=== PATIENT | male | born 1990 | race American Indian/Alaskan Native ===

== ENCOUNTER 2017-02-18 17:44 | Emergency (ER) | payer SELFPAY ==
[2017-02-18] MEDS ORDERED: TYLENOL PO ONE (17:58)
[2017-02-18] MEDS ORDERED: TYLENOL ONE (18:03)
[2017-02-18 18:33] LABS: Anion Gap 17 mmol/L; BUN/Creatinine Ratio 9; Blood Urea Nitrogen 6 mg/dL (9-20); Calcium 9.4 mg/dL (8.4-10.2); Carbon Dioxide 28 mmol/L (22-30); Chloride 99.5 mmol/L (98-107); Glucose 108 mg/dL (75-100); Sodium 140 mmol/L (137-145)
[2017-02-18 18:40] LABS: Basophils % (Auto) 0.7 % (0.0-1.8); Hemoglobin 14.7 gm/dl (11.8-15.2); Mean Corpuscular HGB Conc 33 % (32-34); Mean Corpuscular Hemoglobin 30 pg (28-32); Mean Corpuscular Volume 90 fl (84-94); Platelet Count 359 K/mm3 (140-440); Red Cell Distribution Width 12.5 % (13.2-15.2); White Blood Count 8.6 K/mm3 (4.5-11.0)
[2017-02-18] MEDS ORDERED: TRIMOX PO ONE (23:53)
--- NOTE | 2017-02-18 23:57 | Emergency Department Report ---
HPI - General Chief Complaint: Dental/Oral Time Seen by Provider: 02/18/17 23:46 - HPI HPI: 26-year-old male presents to the emergency department with a complaint of a 2 day history of worsening left ear pain. Yesterday he just felt like it was clogged and/or swollen but today he had extreme pain. He says that there has been some greenish discharge coming from the ear. He denies any fever. He denies any past medical history. He has not taken anything for symptoms prior to presentation. No recent travel or sick contacts at home. He does not have a primary care physician. ED Past Medical Hx - Past Medical History Previous Medical History?: No - Surgical History Past Surgical History?: No - Social History Smoking Status: Current Every Day Smoker Substance Use Type: None - Medications Home Medications: Home Medications Medication Instructions Recorded Confirmed Last Taken Type Amoxicillin [Trimox CAP] 500 mg PO Q8H #30 capsule 02/19/17 Unknown Rx Ciprofloxacin/Hydrocortisone 4 drop BID #1 bottle 02/19/17 Unknown Rx [Cipro Hc Otic Suspension] ED Review of Systems ROS: Stated complaint: LEFT EAR LEAKING,PAIN Other details as noted in HPI Comment: All other systems reviewed and negative Constitutional: denies: chills, fever Eyes: denies: eye pain, eye discharge, vision change ENT: ear pain. denies: throat pain Respiratory: denies: cough, shortness of breath, wheezing Cardiovascular: denies: chest pain, palpitations Gastrointestinal: denies: abdominal pain, nausea, diarrhea Genitourinary: denies: urgency, dysuria Musculoskeletal: denies: back pain, joint swelling, arthralgia Skin: denies: rash, lesions Neurological: denies: headache, weakness, paresthesias Physical Exam - Physical Exam Vital Signs: Vital Signs 02/18/17 17:55 Temperature 98.9 F Pulse Rate 86 Respiratory 18 Rate Blood Pressure 171/115 O2 Sat by Pulse 97 Oximetry Physical Exam: GENERAL: The patient is well-developed well-nourished. HENT: Normocephalic. Atraumatic. Patient has moist mucous membranes. Oropharynx is clear. Normal-appearing right external ear canal and tympanic membrane. The left external ear canal is erythematous, swollen but patent with some white discharge seen. The left tympanic membrane is dull, slightly opaque without any light reflex concerning for an otitis media. EYES: Extraocular motions are intact. Pupils equal reactive to light bilaterally. NECK: Supple. Trachea is midline. CHEST/LUNGS: Clear to auscultation. There is no respiratory distress noted. HEART/CARDIOVASCULAR: Regular. There is no tachycardia. There is no gallop rub or murmur. ABDOMEN: Abdomen is soft, nontender. Patient has normal bowel sounds. There is no abdominal distention. Morbidly obese habitus. SKIN: Skin is warm and dry. NEURO: The patient is awake, alert, and oriented. The patient is cooperative. The patient has no focal neurologic deficits. The patient has normal speech and gait. MUSCULOSKELETAL: There is no tenderness or deformity. There is no limitation range of motion. There is no evidence of acute injury. ED Course Vital Signs 02/18/17 17:55 Temperature 98.9 F Pulse Rate 86 Respiratory 18 Rate Blood Pressure 171/115 O2 Sat by Pulse 97 Oximetry ED Medical Decision Making - Lab Data Result diagrams: 02/18/17 18:03 02/18/17 18:03 - Medical Decision Making 26-year-old male presents with left ear pain for the past 2 days. He appears to have an otitis externa and otitis media. Vital stable including being afebrile. Labs did not show any significant leukocytosis. He had elevated blood pressure through triage which was most likely secondary to discomfort. It was back down at a normal level upon reevaluation without any blood pressure medication. He was given a dose of amoxicillin here and started on a 10 day course at home as well as a prescription for Ciprodex. He was given referrals for primary care and ENT. He'll return to the ER for any worsening of symptoms or any acute distress. - Differential Diagnosis otitis media, otitis externa, dental infection, cellulitis Critical Care Time: No Critical care attestation.: If time is entered above; I have spent that time in minutes in the direct care of this critically ill patient, excluding procedure time. ED Disposition Clinical Impression: Otitis externa Qualifiers: Otitis externa type: unspecified type Chronicity: acute Laterality: left Qualified Code(s): H60.502 - Unspecified acute noninfective otitis externa, left ear Otitis media Qualifiers: Otitis media type: unspecified Chronicity: acute Qualified Code(s): H66.90 - Otitis media, unspecified, unspecified ear Disposition: TO HOME OR SELFCARE Is pt being admited?: No Condition: Stable Instructions: Otitis Externa (ED), Otitis Media (ED) Additional Instructions: Please take the antibiotics as prescribed. He can take Tylenol every 4 hours and ibuprofen every 6 hours, using weight-based dosing, as needed for any fever or discomfort. Return to the emergency Department with any worsening of your symptoms or any acute distress. I have given you a referral for a local ear, nose, throat physician, Dr. Fabien Holman in case the ear pain gets worse and to follow up regarding your ear infections. Prescriptions: Amoxicillin [Trimox CAP] 500 mg PO Q8H #30 capsule Ciprofloxacin/Hydrocortisone [Cipro Hc Otic Suspension] 4 drop BID #1 bottle Referrals: PRIMARY CARE, [Primary Care Provider] - 3-5 Days VIRGINIA PEREZ MD [Staff Physician] - 3-5 Days KYLE MAYFIELD MD [Staff Physician] - 3-5 Days [facility] [Outside] - 3-5 Days Time of Disposition: 00:18
[2017-02-19 00:42] VITALS: BP 133/88
== END 2017-02-19 00:35 | disposition home or self-care (01) ==
LOC: ED 17:44
DX: H66.92 Otitis media, unspecified, left ear (principal); H60.92 Unspecified otitis externa, left ear; F17.210 Nicotine dependence, cigarettes, uncomplicated
CPT/HCPCS: 36415; 80048; 85025; 99283